=== PATIENT | female | born 1980 | race Caucasian/White ===

== ENCOUNTER → 2018-05-28 | Outpatient (CLI) | payer OTHER ==
[~2018-05-28] MED LIST: CETI10CA PO
== END | disposition home or self-care (01) ==
LOC: STAR 09:38
PROVIDERS: ATTEND Obstetrics & Gynecology
DX: Z02.9 Encounter for administrative examinations, unspecified (principal)

== ENCOUNTER 2018-06-04 11:41 | Day surgery (SDC) | payer OTHER ==
[2018-05-28 10:10] VITALS: BP 123/76
[~2018-06-04] VITALS: Ht 160 cm; Wt 54.8 kg
[2018-06-04] MEDS ORDERED: FLUORESCEIN SODIUM 500 MG/5 ML ONE ×2 (12:12→15:22)
[2018-06-04] MEDS ORDERED: BUPIVACAINE/PF-EPI 0.5% 1:200K ONE (12:12)
[2018-06-04] MEDS ORDERED: BUPIVACAINE/PF 0.5% ONE (12:12)
[2018-06-04] MEDS ORDERED: ONDANSETRON ODT 8 MG PO ONE (12:30)
[2018-06-04] MEDS ORDERED: ACETAMINOPHEN 500 MG TABLET PO ONE (12:30)
[2018-06-04] MEDS ORDERED: GABAPENTIN 300 MG CAPSULE PO ONE (12:30)
[2018-06-04] MEDS ORDERED: LACTATED RINGERS 1,000 ML IV SCH (12:45)
[2018-06-04] MEDS ORDERED: LIDOCAINE-MPF 2% ,5ML ONE ×2 (12:48→13:33)
[2018-06-04] MEDS ORDERED: DEXAMETHASONE 4 MG/ML, 1ML ONE ×3 (12:48→13:33)
[2018-06-04] MEDS ORDERED: ROCURONIUM 10MG/ML,5ML ONE (12:48)
[2018-06-04] MEDS ORDERED: FENTANYL PF 250 MCG/5ML ONE (12:48)
[2018-06-04] MEDS ORDERED: MIDAZOLAM 1 MG/ML, 2ML ONE (12:48)
[2018-06-04] MEDS ORDERED: PROPOFOL 10 MG/ML, 20ML ONE (12:48)
[2018-06-04] MEDS ORDERED: SUCCINYLCHOLINE 20 MG/ML, 10ML ONE (12:49)
[2018-06-04] MEDS ORDERED: MIDAZOLAM 1 MG/ML, 2ML IV PRN (13:00)
[2018-06-04] MEDS ORDERED: LABETALOL 5MG/ML, 20ML IV PRN (13:00)
[2018-06-04] MEDS ORDERED: MORPHINE SULFATE 4 MG/ML, 1ML IVPush PRN (13:00)
[2018-06-04] MEDS ORDERED: HYDROmorphone 1 MG/ML, 1ML IV PRN (13:00)
[2018-06-04] MEDS ORDERED: DIAZEPAM 5 MG/ML, 2ML IVPush PRN (13:00)
[2018-06-04] MEDS ORDERED: hydrALAzine 20 MG/ML, 1ML IV PRN (13:00)
[2018-06-04] MEDS ORDERED: LORazepam 2 MG/ML, 1ML IVPush PRN (13:00)
[2018-06-04] MEDS ORDERED: DIPHENHYDRAMINE 50 MG/ML, 1ML IVPush PRN (13:00)
[2018-06-04] MEDS ORDERED: OXYcodone 5 MG/5 ML ORAL.SOL UDC PO PRN (13:00)
[2018-06-04] MEDS ORDERED: METOPROLOL 1 MG/ML, 5ML IV PRN (13:00)
[2018-06-04] MEDS ORDERED: MEPERIDINE/PF 25MG/0.5ML IVPush PRN (13:00)
[2018-06-04] MEDS ORDERED: EPHEDRINE 50 MG/ML, 1ML IVPush PRN (13:00)
[2018-06-04] MEDS ORDERED: ALBUTEROL SULFATE 2.5 MG/3 ML NPPB PRN (13:00)
[2018-06-04] MEDS ORDERED: PROCHLORPERAZINE 5 MG/ML, 2ML IV PRN (13:00)
[2018-06-04 13:05] LABS: HCG UR SG 1.005 (1.003-1.030)
[2018-06-04] MEDS ORDERED: CEFAZOLIN 1,000 MG ONE (13:33)
[2018-06-04] MEDS ORDERED: GLYCOPYRROLATE 0.2MG/1ML, 5ML ONE (13:33)
[2018-06-04] MEDS ORDERED: PHENYLEPHRINE 10 MG/ML ONE (13:33)
[2018-06-04] MEDS ORDERED: EPHEDRINE 50 MG/ML, 1ML ONE (13:33)
[2018-06-04] MEDS ORDERED: OXYcodone 5 MG/5 ML ORAL.SOL UDC ONE (16:09)
[2018-06-04] MEDS ORDERED: FENTANYL PF 100 MCG/2ML ONE (16:09)
[2018-06-04] MEDS: FENTANYL PF 100 MCG/2ML IV PRN ×2 (16:15→16:25)
[2018-06-04] MEDS ORDERED: KETOROLAC 30 MG/1 ML ONE (17:19)
[2018-06-04] MEDS ORDERED: morphine SULFATE 10 MG/ML, 1ML IVPush PRN (17:30)
[2018-06-04] MEDS ORDERED: KETOROLAC 30 MG/1 ML IVPush PRN (17:30)
[2018-06-04] MEDS ORDERED: OXYcodone/APAP 5/325MG TABLET PO PRN (17:30)
[2018-06-04 19:40] VITALS: BP 117/74
== END 2018-06-04 20:45 | disposition home or self-care (01) ==
LOC: OUT 11:41 → 4NOR 19:00 → OUT 20:45
PROVIDERS: ATTEND Obstetrics & Gynecology
DX: D25.9 Leiomyoma of uterus, unspecified (principal)
CPT/HCPCS: 58554; 81025; 88307; J0330; J0690; J1100; J1885; J2250; J2370; J2704; J3010; J3490; J7120; Q0162; G0378